=== PATIENT | female | born 1955 | race Caucasian/White ===

== ENCOUNTER 2019-01-06 12:35 | Observation (INO) ==
--- OUTSIDE RECORDS SUMMARY | 2019-01-06 12:38 | External Medical Summary | Continuity of Care Document ---
:1955 Author Name Greg Hopper, Provider Address Unavailable Unavailable , Care Team Providers Name Role Phone NonMNPG MBilly, Provider Unavailable [email or web address], [email or web address] Unavailable Unavailable Problems Active medical history not documented Allergies and Adverse Reactions aspirin (Allergy) Capsaicin CREA (Allergy) Dimaphen DM Cold/Cough ELIX (Allergy) diphenhydrAMINE (Allergy) Entex ER (Allergy) guaiFENesin TABS (Allergy) Ornade Spansules (Allergy) Penicillins (Allergy) Piperine POWD (Allergy) Shellfish-derived Products (Allergy) simvastatin (Allergy) Mold (Allergy) Medications Vitamin B Complex Oral Tablet; Take once or twice per week Start: 16-Sep-2018 Refills: 0 Co Q 10 100 MG Oral Capsule; TAKE 2 CAPSULES ONCE DAILY. Start: 16-Sep-2018 Refills: 0 Centrum Silver Oral Tablet; TAKE 1 TABLET DAILY. Start: 16-Sep-2018 Refills: 0 Vitamin D3 1000 UNIT Oral Capsule; TAKE 1 CAPSULE Daily Start: 16-Sep-2018 Refills: 0 Procedures Procedures not documented Immunizations Immunizations not documented Social History - Smoking Status Former smoker Plan of Treatment Planned Observations Planned Goals not documented Results No Known Results Results not documented
[2019-01-06] MEDS ORDERED: ASPIRIN CHEW 324 MG PO STA (13:05)
[2019-01-06 13:17] LABS: Basophils # (auto) 0.01 K/uL (0-0.2); Basophils % (auto) 0.1 %; Eosinophils % (auto) 2.2 %; Hematocrit (blood only) 40.1 % (37-47); Hemoglobin 12.9 g/dL (12.0-16.0); Immature Granulocytes # (auto) 0.03 K/uL (0.00-0.02); Immature Granulocytes % (auto) 0.3 %; Lymphocytes # (auto) 3.13 K/uL (1.2-3.4); Lymphocytes % (auto) 33.8 %; Mean Corpuscular Hgb Conc 32.2 g/dL (32-36); Mean Corpuscular Volume 86.1 fL (80-100); Mean Platelet Volume 10.6 fL (7.4-10.4); Monocytes # (auto) 0.81 K/uL (0.11-0.59); Monocytes % (auto) 8.7 %; Neutrophils # (auto) 5.09 K/uL (1.4-6.5); Neutrophils % (auto) 54.9 %; Platelet Count 305 K/uL (130-400); RDW Standard Deviation 43.7 fL (36.4-46.3); Red Blood Count 4.66 M/uL (4.2-5.4); White Blood Count 9.27 K/uL (4.8-10.8)
[2019-01-06 13:26] LABS: Alanine Aminotransferase 19 U/L (12-78); Albumin Level 3.8 gm/dl (3.4-5.0); Aspartate Aminotransferase 18 U/L (15-37); BUN Creatinine Ratio 12.9 (10-20); Blood Urea Nitrogen 11 mg/dl (7-18); Carbon Dioxide 25 mmol/L (21-32); Chloride 109 mmol/L (98-107); Creatinine Clr Calc Pharmacy 61.2 ml/min; Est GFR (African American) 84.5; Est GFR (Non-African American) 72.9; Glucose 94 mg/dl (70-99); Magnesium 2.3 mg/dl (1.8-2.4); Sodium 140 mmol/L (136-145)
[2019-01-06 13:29] LABS: Albumin Globulin Ratio 1.2 (0.9-2); Alkaline Phosphatase 74 U/L (45-117); Bilirubin,Total 0.3 mg/dl (0.2-1); Globulin 3.2 gm/dl (2.5-4.0); Troponin I < 0.015 ng/ml (0-0.045)
--- NOTE | 2019-01-06 13:49 | XRay Report ---
XR chest 1V portable CLINICAL HISTORY: Chest Pain COMPARISON STUDY: No previous studies for comparison. FINDINGS: Lung volumes are normal. Lungs are clear. There is no pneumothorax or pleural effusion. Car diac size is normal. Mediastinal contours are normal. There is no evidence for pulmonary edema. Opaci ty along left heart border favors epicardial fat pad. IMPRESSION: No acute cardiopulmonary findings. Electronically signed by: Daniel Judge M.D. 01/06/2019 1:47 PM
--- NOTE | 2019-01-06 17:14 | History & Physical Report ---
Date of Service January 06, 2019 Assessment & Plan (1) Atypical chest pain: -Admit to telemetry -Patient presenting from home with reports of midsternal tight/squeezing chest pain that came on while she was picking some vegetables in her garden -Risk factors: + Family history, former smoker -Had relief after 1 spray of nitroglycerin for EMS -Now reporting an occasional burning sensation -Troponins negative x2, EKG without acute ST changes -Continue to cycle cardiac enzymes, check resting echo -Aspirin 81 mg daily -? GI in nature; will start PPI twice daily -BP elevated, likely situational; will continue to monitor -If troponins remain negative and echo unremarkable, consider discharge home with outpatient stress test (2) DVT prophylaxis: -SQ Lovenox History of Present Illness Chief Complaint: Chest pain Primary Care Provider: Samantha Brice, DO 63-year-old female who presents the ED with chest pain. Patient reports she was out in her garden, picking some vegetables, when she had a sudden onset of midsternal chest pain radiating into her back. Patient describes the pain as severe, squeezing/tightening. She had associated shortness of breath and felt unsteady on her feet. No nausea, lightheadedness, dizziness, diaphoresis, syncopal event. She reports she took 6 baby aspirin and that her took her to her doctor's office. When she arrived there, EMS was called. EMS gave the patient 1 spray of nitroglycerin and by the time she arrived to the ED, she reports she has had resolution of her pain. She reports an occasional burning sensation in her mid chest. Patient reports her otherwise been feeling well recently. No other recent illness, fevers, chills. She denies abdominal pain, vomiting, diarrhea. No urinary symptoms. In the ED, troponins are negative x2 and EKG does not show any acute ST changes. She has remained hemodynamically stable. She was given a full dose aspirin. Allergies Allergy/AdvReac Type Severity Reaction Status Date / Time capsaicin Allergy Severe throat Unverified 01/06/19 14:14 swelling penicillin V Allergy Intermediate Rash Unverified 01/06/19 14:14 shellfish derived Allergy Intermediate Nausea/ Unverified 01/06/19 14:14 vomiting mold Allergy Mild Sneezing Unverified 01/06/19 14:14 aspirin AdvReac Severe Tachycardia Unverified 01/06/19 14:14 simvastatin AdvReac Severe muscle Unverified 01/06/19 14:14 ache/ stiffness brompheniramine AdvReac Unknown tachypnea Unverified 01/06/19 14:14 [From Dimetapp (brompheniramine-PPA)] chlorpheniramine AdvReac Unknown tachypnea Unverified 01/06/19 14:14 [From Ornade] diphenhydramine AdvReac Unknown tachypnea Unverified 01/06/19 14:14 guaifenesin AdvReac Unknown tachypnea Unverified 01/06/19 14:14 phenylpropanolamine AdvReac Unknown tachypnea Unverified 01/06/19 14:14 [From Dimetapp (brompheniramine-PPA)] pseudoephedrine AdvReac Unknown tachypnea Unverified 01/06/19 14:14 [From Entex T] Home Medications Home Medications Medication Instructions Recorded Confirmed Type No Known Home Medications 01/06/19 01/06/19 History Past Med/Surg History Medical History GERD (gastroesophageal reflux disease) (Chronic) Surgical History S/P YESSENIA (total abdominal hysterectomy) (Chronic) History of appendectomy (Chronic) History of exploratory laparotomy (Chronic) Family History Sister Heart disease Stents at age 63 Grandmother (Maternal) Heart disease Social History Preferred Language: Albanian Communication Ability: Effective Data Center Architect Required: No Beliefs That Will Affect Care: None Current Living Situation: Spouse Other Information That Helps Us Care for You: No Feels Safe at Home: Yes Safety Concerns: Feels Safe At This Time Smoking Status: Former smoker Hx Alcohol Use: No Hx Substance Use: No Review of Systems Review of Systems: ROS per HPI, all other systems reviewed and negative Physical Exam Constitutional: WD/WN, vitals as above Eyes: PERRL, conjunctivae normal, anicteric sclerae ENMT: external ear and nose normal, oropharynx normal Respiratory: normal respiratory effort, lungs clear to auscultation Cardiovascular: Rate/Rhythm: regular rate and regular rhythm Vessels: normal peripheral pulses Extremities: no edema Gastrointestinal (Abdomen): normal bowel sounds, soft, nontender, no hepatosplenomegaly Musculoskeletal: no cyanosis or clubbing, extremities motor strength 5/5 Head/Neck/Chest: no chest tenderness Skin: no rashes, warm and dry Neurologic: PERRL, EOMI, accommodation nl, no face palsy, no dysarthria Psychiatric: A+Ox3, euthymic affect Results & Data Vital Signs (Past 12 Hours) Vital Signs Temp Pulse Pulse Resp BP BP Pulse Ox 01/06/19 15:55 67 22 156/87 H 97 01/06/19 13:36 80 17 145/93 H 97 01/06/19 12:46 37.0 C 78 17 162/91 H 97 Laboratory Results Short CBC 01/06/19 Range/Units 12:55 WBC 9.27 (4.8-10.8) K/uL Hgb 12.9 (12.0-16.0) g/dL Hct 40.1 (37-47) % Plt Count 305 (130-400) K/uL BMP 01/06/19 12:55 Sodium 140 Potassium 4.0 Chloride 109 H Carbon Dioxide 25 BUN 11 Creatinine 0.84 Glucose 94 Calcium 9.0 Cardiac Enzymes 01/06/19 01/06/19 Range/Units 12:55 14:00 Troponin I < 0.015 < 0.015 (0-0.045) ng/ml Liver Function 01/06/19 Range/Units 12:55 Total Bilirubin 0.3 (0.2-1) mg/dl AST 18 (15-37) U/L ALT 19 (12-78) U/L Alkaline Phosphatase 74 (45-117) U/L Albumin 3.8 (3.4-5.0) gm/dl Diagnostic Findings CXR IMPRESSION: No acute cardiopulmonary findings. Code Status & VTE Plan VTE Prophylaxis Plan VTE Prophylaxis will be ordered: Yes Supervising Physician Co-Signing Physician Notes Attending Addendum: care coordinated with ROOSEVELT Napier please refer to her notes for full details, I agree with her notes patient seen and examined, records reviewed by myself as well on exam, patient seen resting in bed, sitting up having dinner chest pain free denies SOB, abdominal pain, nausea in good spirits no other symptoms VS noted and reviewed oriented x 3 , not in distress, speaks in sentences with no effort nor accessory muscle use normal rate, regular rhythm, no murmurs clear breath sounds bilaterally non distended, soft, nontender no bipedal edema, erythema, warmth no neuro deficits trop <0.015 EKG no acute ischemia ASSESSMENT AND PLAN CHEST PAIN R/O ACS trend troponin echo ASA started check d dimer HTN no history in the past monitor other diagnoses and plan of care as per ROOSEVELT Ogden MD
[2019-01-06] MEDS ORDERED: NITROGLYCERIN SL 0.4 MG/TAB TAB SL PRN (17:31)
[2019-01-06] MEDS ORDERED: ACETAMINOPHEN 325 MG TAB PO PRN (17:31)
[2019-01-06 18:27] LABS: INR 1.1 (0.9-1.1); Prothrombin Time 10.8 Seconds (9.0-12.0)
[2019-01-06] MEDS ORDERED: ENOXAPARIN INJ 40 MG/0.4 ML SYR SQ SCH (19:00)
[2019-01-06 19:17] LABS: D Dimer 220 ug/L FEU (0-500)
--- NOTE | 2019-01-06 20:03 | Emergency Department Note ---
Entered by Seda James acting as a scribe for Biju Serna MD History of Present Illness General Chief complaint: Chest Pain Time Seen by Provider: 01/06/19 12:36 Source: patient History of Present Illness Provider complaint: Chest pain Onset (ago): hour(s) 2 Location: chest Pain Consistency: + constant Quality: + burning and + other (fist grabbing ) Associated symptoms: + chest pain, + shortness of breath and + other (Positive: leg swelling, trouble keeping balance. 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 The patient reports her pain lasted for 30 minutes. She describes her pain as fist grabbing pain in the front and the back. The patient notes she was given nitroglycerin on her way to the ED and her pain was improved. 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 The patient reports she has trouble keeping her balance. She notes she has family history of heart problems. The patient states she has swelling in her legs that started a month ago. She notes she gets shortness of breath when she has chest pain. The patient states she has not had any recent procedures in the last month. She states she does not have history of blood clots in the legs or lungs. The patient denies smoking, nausea, fever, chills, cough, or abdominal pain. Home Medications Home Medications Medication Instructions Recorded Confirmed Type No Known Home Medications 01/06/19 01/06/19 History Allergies Allergy/AdvReac Type Severity Reaction Status Date / Time capsaicin Allergy Severe throat Unverified 01/06/19 14:14 swelling penicillin V Allergy Intermediate Rash Unverified 01/06/19 14:14 shellfish derived Allergy Intermediate Nausea/ Unverified 01/06/19 14:14 vomiting mold Allergy Mild Sneezing Unverified 01/06/19 14:14 aspirin AdvReac Severe Tachycardia Unverified 01/06/19 14:14 simvastatin AdvReac Severe muscle Unverified 01/06/19 14:14 ache/ stiffness brompheniramine AdvReac Unknown tachypnea Unverified 01/06/19 14:14 [From Dimetapp (brompheniramine-PPA)] chlorpheniramine AdvReac Unknown tachypnea Unverified 01/06/19 14:14 [From Ornade] diphenhydramine AdvReac Unknown tachypnea Unverified 01/06/19 14:14 guaifenesin AdvReac Unknown tachypnea Unverified 01/06/19 14:14 phenylpropanolamine AdvReac Unknown tachypnea Unverified 01/06/19 14:14 [From Dimetapp (brompheniramine-PPA)] pseudoephedrine AdvReac Unknown tachypnea Unverified 01/06/19 14:14 [From Entex T] Past Med/Surg History Medical History GERD (gastroesophageal reflux disease) (Chronic) Surgical History S/P YESSENIA (total abdominal hysterectomy) (Chronic) History of appendectomy (Chronic) History of exploratory laparotomy (Chronic) Family History Sister Heart disease Stents at age 63 Grandmother (Maternal) Heart disease Social History Preferred Language: Setswana Communication Ability: Effective Substation Designer Required: No Beliefs That Will Affect Care: None Current Living Situation: Spouse Other Information That Helps Us Care for You: No Feels Safe at Home: Yes Safety Concerns: Feels Safe At This Time Smoking Status: Former smoker Hx Alcohol Use: No Hx Substance Use: No Review of Systems See HPI for pertinent positives & negatives. and A total of 10 systems reviewed and were otherwise negative Physical Exam Vital Signs Vital Signs - 24 hr 01/06/19 12:46 01/06/19 13:36 Temperature 37.0 C Temperature Source Oral Sepsis Recent Fever Within 48 Hours No Sepsis Action Taken by Nursing No Action Required Pulse Rate 78 Pulse Rate [Finger] 80 Respiratory Rate 17 17 Blood Pressure 162/91 H Blood Pressure [Left Arm] 145/93 H Blood Pressure Mean 114 Blood Pressure Mean [Left Arm] 110 Pulse Oximetry 97 97 Oxygen Delivery Method Room Air Room Air GENERAL: Well appearing, well nourished, NAD, non-toxic. Wearing glasses. EYE EXAM: Normal conjunctiva. PERRL, no anisocoria and EOM's grossly intact w/o pain. OROPHARYNX: Moist mucous membranes. Grossly normal dentition. NECK: Supple, no nuchal rigidity, no adenopathy, non-tender. No signs of meningismus. LUNGS: Clear to auscultation. Normal chest wall mechanics. HEART: NSR, no MRG. ABDOMEN: Abdomen soft, non-tender, normo-active bowel sounds, no masses, no rebound or guarding. BACK: No CVA TTP. SKIN: No rashes and no bruising. UPPER EXTREMITIES: Upper extremities are grossly normal. LOWER EXTREMITIES: No pitting edema. No calf pain. Negative malcom sign. NEURO EXAM: A&O x3, cranial nerves II-XII grossly intact, normal speech, moves all 4 extremities on command w/o issue. Course 1245: The patient was evaluated in room C3. A complete history and physical exam was performed. 1351: I checked on the patient. The patient still has chest pain and wants a stress test over admission. 1457: I reviewed the patient's case with Gabriel Fuller. The patient will go to Dr. Ogden, Internal medicine. 1505: Upon reevaluation, the patient is resting comfortably. I discussed laboratory and radiographic results with her. The patient verbalized agreement of the treatment plan. The patient will be evaluated for further management and care. 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 Differential diagnosis: Etiologies such as shingles, musculoskeletal pain, pericarditis, myocarditis, cardiac ischemia, pericardial tamponade, pneumonia, pneumothorax, pleural effusion, hemothorax, pleurisy, aortic pathology, pulmonary embolism, intra- abdominal process, as well as others were considered. Medical Records Attestation: I reviewed the patient's medical records. Home Medications Current Medication List: was personally reviewed by me Laboratory Data Attestation: I reviewed the patient's lab results. Result diagrams: 01/06/19 12:55 01/06/19 12:55 Lab Results 01/06/19 01/06/19 01/06/19 Range/Units 12:55 12:55 12:55 WBC 9.27 (4.8-10.8) K/uL RBC 4.66 (4.2-5.4) M/uL Hgb 12.9 (12.0-16.0) g/dL Hct 40.1 (37-47) % MCV 86.1 (80-100) fL MCH 27.7 (25-34) pg MCHC 32.2 (32-36) g/dL RDW Std Deviation 43.7 (36.4-46.3) fL RDW Coeff of Cherelle 14.0 (11.5-14.5) % Plt Count 305 (130-400) K/uL MPV 10.6 H (7.4-10.4) fL Immature Gran % (Auto) 0.3 % Neut % (Auto) 54.9 % Lymph % (Auto) 33.8 % [place] % (Auto) 8.7 % Eos % (Auto) 2.2 % Baso % (Auto) 0.1 % Immature Gran # (Auto) 0.03 H (0.00-0.02) K/uL Neut # (Auto) 5.09 (1.4-6.5) K/uL Lymph # (Auto) 3.13 (1.2-3.4) K/uL [place] # (Auto) 0.81 H (0.11-0.59) K/uL Eos # (Auto) 0.20 (0-0.5) K/uL Baso # (Auto) 0.01 (0-0.2) K/uL PT 10.8 (9.0-12.0) Seconds INR 1.1 (0.9-1.1) Sodium 140 (136-145) mmol/L Potassium 4.0 (3.5-5.1) mmol/L Chloride 109 H (98-107) mmol/L Carbon Dioxide 25 (21-32) mmol/L Anion Gap 6.0 (3-11) BUN 11 (7-18) mg/dl Creatinine 0.84 (0.6-1.2) mg/dl Est Cr Clr Drug Dosing 61.2 ml/min Est GFR ( Amer) 84.5 Est GFR (Non-Af Amer) 72.9 BUN/Creatinine Ratio 12.9 (10-20) Glucose 94 (70-99) mg/dl Calcium 9.0 (8.5-10.1) mg/dl Magnesium 2.3 (1.8-2.4) mg/dl Total Bilirubin 0.3 (0.2-1) mg/dl AST 18 (15-37) U/L ALT 19 (12-78) U/L Alkaline Phosphatase 74 (45-117) U/L Troponin I < 0.015 (0-0.045) ng/ml Total Protein 7.0 (6.4-8.2) gm/dl Albumin 3.8 (3.4-5.0) gm/dl Globulin 3.2 (2.5-4.0) gm/dl Albumin/Globulin Ratio 1.2 (0.9-2) Lipase 127 (73-393) U/L Specimen Hemolysis 01/06/19 Range/Units 14:00 WBC (4.8-10.8) K/uL RBC (4.2-5.4) M/uL Hgb (12.0-16.0) g/dL Hct (37-47) % MCV (80-100) fL MCH (25-34) pg MCHC (32-36) g/dL RDW Std Deviation (36.4-46.3) fL RDW Coeff of Cherelle (11.5-14.5) % Plt Count (130-400) K/uL MPV (7.4-10.4) fL Immature Gran % (Auto) % Neut % (Auto) % Lymph % (Auto) % [place] % (Auto) % Eos % (Auto) % Baso % (Auto) % Immature Gran # (Auto) (0.00-0.02) K/uL Neut # (Auto) (1.4-6.5) K/uL Lymph # (Auto) (1.2-3.4) K/uL [place] # (Auto) (0.11-0.59) K/uL Eos # (Auto) (0-0.5) K/uL Baso # (Auto) (0-0.2) K/uL PT (9.0-12.0) Seconds INR (0.9-1.1) Sodium (136-145) mmol/L Potassium (3.5-5.1) mmol/L Chloride (98-107) mmol/L Carbon Dioxide (21-32) mmol/L Anion Gap (3-11) BUN (7-18) mg/dl Creatinine (0.6-1.2) mg/dl Est Cr Clr Drug Dosing ml/min Est GFR ( Amer) Est GFR (Non-Af Amer) BUN/Creatinine Ratio (10-20) Glucose (70-99) mg/dl Calcium (8.5-10.1) mg/dl Magnesium (1.8-2.4) mg/dl Total Bilirubin (0.2-1) mg/dl AST (15-37) U/L ALT (12-78) U/L Alkaline Phosphatase (45-117) U/L Troponin I < 0.015 (0-0.045) ng/ml Total Protein (6.4-8.2) gm/dl Albumin (3.4-5.0) gm/dl Globulin (2.5-4.0) gm/dl Albumin/Globulin Ratio (0.9-2) Lipase (73-393) U/L Specimen Hemolysis Imaging Data Radiologist's Impression: Radiology results as stated below per my review and the radiologist's interpretation: XR chest 1V portable CLINICAL HISTORY: Chest Pain COMPARISON STUDY: No previous studies for comparison. FINDINGS: Lung volumes are normal. Lungs are clear. There is no pneumothorax or pleural effusion. Cardiac size is normal. Mediastinal contours are normal. There is no evidence for pulmonary edema. Opacity along left heart border favors epicardial fat pad. IMPRESSION: No acute cardiopulmonary findings. Electronically signed by: Daniel Judge M.D. 01/06/2019 1:47 PM ECG Data Attestation: I personally reviewed and interpreted this ECG as follows: Indication: chest pain Rate (beats per minute): 71 Rhythm: normal sinus Findings: + other (Normal intervals and axis. ) and + T-wave inversion (Lead 3) Comparison ECG Date: from (Prehospital ECG) Change: no significant change Blood Pressure Blood Pressure Findings: Elevated blood pressure Blood Pressure Disposition: further management by hospitalist MDM Narrative The patient is a 63 white female w/ PMHx of PVC who presents to the ED w/ CC of burning central chest pain beginning 2 hours ago. Patient was seen and evaluated the bedside. The patient is a recent transplant moved to the area and was subsequently referred here from the primary care's office with concern for chest pains. The patient did complain of some squeezing and pressure-like central chest pain. The patient did have some diaphoresis but without nausea vomiting. The patient also does relate that she has significant cardiac history and her brother and mother before the age of 65. The patient did have blood work completed along with an EKG troponin. Patient's EKG does show T wave inversion 3. No prior to compare at this time which she has not been here before. Patient never did experience any chest pains while in the department. The patient does have a T wave inversion inferiorly but no prior to compare to if she is not from the area. The patient has normal blood work. A repeat troponin was obtained after discussion with the patient she would prefer to try to get a stress test now. Did call the black topper who unfortunately was unable to perform a stress test at this time given his already busy schedule. I did rediscuss with the patient to see if she was amenable for inpatient treatment. Patient was agreeable. Patient was subsequently admitted to the medicine service for further evaluation treatment likely stress test tomorrow. Impression & Plan Atypical chest pain Discharge Plan Visit Data *Final* Discharge Date/Time: 01/06/19 16:56 Chief Complaint: Chest Pain ED Provider: Biju Serna Discharge Problem: Atypical chest pain Patient Disposition: Admitted As Inpatient Discharge Instructions Interventions: ED Discharge Assessment Last Done: 01/06/19 16:56 The scribe's documentation has been prepared under my direction and personally reviewed by me in its entirety. I confirm that the note above accurately refle cts all work, treatment, procedures, and medical decision making performed by me.
[2019-01-06] MEDS: PANTOprazole 40 MG TAB PO SCH (20:05)
[2019-01-07 02:11] LABS: Hematocrit (blood only) 39.3 % (37-47); Hemoglobin 12.5 g/dL (12.0-16.0); Mean Corpuscular Hgb Conc 31.8 g/dL (32-36); Mean Corpuscular Volume 86.2 fL (80-100); Mean Platelet Volume 9.9 fL (7.4-10.4); Platelet Count 276 K/uL (130-400); RDW Coefficient of Variation 13.9 % (11.5-14.5); RDW Standard Deviation 43.8 fL (36.4-46.3); Red Blood Count 4.56 M/uL (4.2-5.4); White Blood Count 8.04 K/uL (4.8-10.8)
[2019-01-07 02:29] LABS: Blood Urea Nitrogen 16 mg/dl (7-18); Calcium 8.6 mg/dl (8.5-10.1); Carbon Dioxide 26 mmol/L (21-32); Chloride 110 mmol/L (98-107); Creatinine Clr Calc Pharmacy 64.7 ml/min; Est GFR (African American) 92.5; Est GFR (Non-African American) 79.8; Glucose 98 mg/dl (70-99); Potassium 3.9 mmol/L (3.5-5.1); Sodium 142 mmol/L (136-145)
[2019-01-07 02:34] LABS: Chol HDL Ratio 7; Cholesterol 234 mg/dl (0-200); HDL Cholesterol 34 mg/dl; LDL Cholesterol Calculated 169 mg/dl; Triglycerides 157 mg/dl (0-150); Troponin I < 0.015 ng/ml (0-0.045); VLDL Cholesterol 31 mg/dl
[2019-01-07] MEDS ORDERED: ASPIRIN 81 MG ECTAB PO SCH (09:00)
[2019-01-07] MEDS: PANTOprazole 40 MG TAB PO SCH (10:00)
--- NOTE | 2019-01-08 21:10 | Hospitalist Progress Note ---
Date of Service delayed entry date of service 01/07/19 January 08, 2019 Assessment & Plan (1) Atypical chest pain: ACS ruled out -Patient presenting from home with reports of midsternal tight/squeezing chest pain that came on while she was picking some vegetables in her garden -Risk factors: + Family history, former smoker -Had relief after 1 spray of nitroglycerin for EMS -Now reporting an occasional burning sensation Troponins x 3 negative EKG no signs of acute ischemia Echo: EF 65-70% left ventricular wall motion is normal there is no pericardial effusion possible patent foramen ovale, per color doppler interrogation of the interatrial septum consider repeat limited echocardiogram with injection of agitated salilne contrast for further evaluation if clinically warranted ASA 81mg po daily Outpatient Stress Test Chest pain from GERD, Hiatal Hernia? Omeprazole 40mg daily monitor response Discharge to home ff up with PCP in 1 week Subjective seen resting in bed, comfortable in good spirits chest pain free, no recurrence of chest pain since admission no nausea/vomiting, dyspnea, dizziness, abdominal pain no other symptoms states she is ready and would like to be discharged Review of Systems Review of Systems: All systems reviewed & are unremarkable except as noted in HPI & below Physical Exam 2 Physical Exam: General- oriented x 3, not in distress, speaks in sentences with no effort or accessory muscle use Eyes- anicteric Neck- no JVD Lungs- clear breath sounds bilaterally Heart- normal rate, regular rhythm; no murmurs Abdomen- normal bowel sounds, nondistended, soft, nontender Extremities- no pretibial edema, no calf tenderness Neuro- alert, oriented x 3; no gross focal neurologic deficits Skin- warm & dry Results & Data Laboratory Results all noted and reviewed
--- NOTE | 2019-01-11 18:29 | Discharge Summary ---
Date of Service January 11, 2019 Admission HPI Per Admitting Provider 63-year-old female who presents the ED with chest pain. Patient reports she was out in her garden, picking some vegetables, when she had a sudden onset of midsternal chest pain radiating into her back. Patient describes the pain as severe, squeezing/tightening. She had associated shortness of breath and felt unsteady on her feet. No nausea, lightheadedness, dizziness, diaphoresis, syncopal event. She reports she took 6 baby aspirin and that her took her to her doctor's office. When she arrived there, EMS was called. EMS gave the patient 1 spray of nitroglycerin and by the time she arrived to the ED, she reports she has had resolution of her pain. She reports an occasional burning sensation in her mid chest. Patient reports her otherwise been feeling well recently. No other recent illness, fevers, chills. She denies abdominal pain, vomiting, diarrhea. No urinary symptoms. In the ED, troponins are negative x2 and EKG does not show any acute ST changes. She has remained hemodynamically stable. She was given a full dose aspirin. Admission Exam Per Admitting Provider Constitutional: WD/WN, vitals as above Eyes: PERRL, conjunctivae normal, anicteric sclerae ENMT: external ear and nose normal, oropharynx normal Respiratory: normal respiratory effort, lungs clear to auscultation Cardiovascular: Rate/Rhythm: regular rate and regular rhythm Vessels: normal peripheral pulses Extremities: no edema Gastrointestinal (Abdomen): normal bowel sounds, soft, nontender, no hepatosplenomegaly Musculoskeletal: no cyanosis or clubbing, extremities motor strength 5/5 Head/Neck/Chest: no chest tenderness Skin: no rashes, warm and dry Neurologic: PERRL, EOMI, accommodation nl, no face palsy, no dysarthria Psychiatric: A+Ox3, euthymic affect Principal Diagnosis ATYPICAL CHEST PAIN Discharge Exam General- oriented x 3, not in distress, speaks in sentences with no effort or accessory muscle use Eyes- anicteric Neck- no JVD Lungs- clear breath sounds bilaterally Heart- normal rate, regular rhythm; no murmurs Abdomen- normal bowel sounds, nondistended, soft, nontender Extremities- no pretibial edema, no calf tenderness Neuro- alert, oriented x 3; no gross focal neurologic deficits Skin- warm & dry Discharge Data Allergies Allergy/AdvReac Type Severity Reaction Status Date / Time capsaicin Allergy Severe throat Unverified 01/06/19 14:14 swelling penicillin V Allergy Intermediate Rash Unverified 01/06/19 14:14 shellfish derived Allergy Intermediate Nausea/ Unverified 01/06/19 14:14 vomiting mold Allergy Mild Sneezing Unverified 01/06/19 14:14 aspirin AdvReac Severe Tachycardia Unverified 01/06/19 14:14 simvastatin AdvReac Severe muscle Unverified 01/06/19 14:14 ache/ stiffness brompheniramine AdvReac Unknown tachypnea Unverified 01/06/19 14:14 [From Dimetapp (brompheniramine-PPA)] chlorpheniramine AdvReac Unknown tachypnea Unverified 01/06/19 14:14 [From Ornade] diphenhydramine AdvReac Unknown tachypnea Unverified 01/06/19 14:14 guaifenesin AdvReac Unknown tachypnea Unverified 01/06/19 14:14 phenylpropanolamine AdvReac Unknown tachypnea Unverified 01/06/19 14:14 [From Dimetapp (brompheniramine-PPA)] pseudoephedrine AdvReac Unknown tachypnea Unverified 01/06/19 14:14 [From Entex T] Consultations 01/06/19 14:58 ED Decision to Admit Stat Procedures Performed ECHO: EF 65-70% The Left Ventricular Wall Motion is normal. There is no pericardial effusion. normal LV relaxation possible patent foramen ovale, per color doppler interrogation of the interatrial septum consider repeat limited echocardiogram with injection of agitated salilne contrast for further evaluation if clinically warranted XR chest 1V portable CLINICAL HISTORY: Chest Pain COMPARISON STUDY: No previous studies for comparison. FINDINGS: Lung volumes are normal. Lungs are clear. There is no pneumothorax or pleural effusion. Cardiac size is normal. Mediastinal contours are normal. There is no evidence for pulmonary edema. Opacity along left heart border favors epicardial fat pad. IMPRESSION: No acute cardiopulmonary findings. Hospital Course (1) Atypical chest pain: Acute Coronary Syndrome ruled out -Patient presenting from home with reports of midsternal tight/squeezing chest pain that came on while she was picking some vegetables in her garden -Risk factors: + Family history, former smoker -Had relief after 1 spray of nitroglycerin for EMS on admission, reporting an occasional burning sensation Troponins x 3 negative EKG no signs of acute ischemia Echo: EF 65-70% left ventricular wall motion is normal there is no pericardial effusion possible patent foramen ovale, per color doppler interrogation of the interatrial septum consider repeat limited echocardiogram with injection of agitated salilne contrast for further evaluation if clinically warranted can walk 2 blocks, climb 13 steps without chest pain, unusual dyspnea recommend ASA 81mg po daily Outpatient Stress Test Chest pain from GERD, Hiatal Hernia? Omeprazole 40mg daily monitor response Discharge to home ff up with PCP in 1 week case and plan of care discussed with patient in detail and at length all questions answered she is understanding, agreeable and comfortable Total Time Total Time Spent Total Time Spent (In Minutes): 50 mins Discharge Plan Discharge Items Patient Disposition: Home - Self-Care Reason For Visit: CHEST PAIN Discharge Diagnosis: CHEST PAIN Discharge Goals: Diagnostic testing and Therapeutic intervention Activity: As commented below Activity Comment: NO HEAVY EXERTION UNTIL RE-EVALUATED BY PRIMARY CARE PHYSICIAN Lifting: Wait until after follow-up appointment Exercise/Sports: Wait until after follow-up appointment Driving/Machine Use Comment: NO DRIVING UNTIL RE-EVALUATED BY PRIMARY CARE PHYSICIAN Non-emergency contact: Primary Care Provider Call non-emergency contact if: you have any medication questions Follow-up/Referrals: Samantha Matamoros, [Primary Care Provider] - Diet: Heart Healthy Addtl Provider Instructions: PLEASE CALL PRIMARY CARE PHYSICIAN OR RETURN TO THE ER IF WITH RECURRENCE OF SYMPTOMS. ALWAYS TAKE ASPIRIN WITH A FULL STOMACH. ALWAYS TAKE OMEPRAZOLE AT LEAST 30 MINUTES BEFORE THE FIRST MEAL OF THE DAY. FOLLOW UP WITH DR. SAMANTHA MATAMOROS THIS COMING WEEK. STRESS TEST TO BE DONE AN OUTPATIENT. THE SCHEDULING OFFICE WILL BE CALLING YOU FOR BOTH APPOINTMENTS SOON. Prescriptions: New aspirin [Ecotrin Low Strength] 81 mg Tablet,Delayed Release (Dr/Ec) 81 mg PO QAM 30 Days Qty: 30 RF: 1 omeprazole 20 mg tablet,delayed release (DR/EC) 40 mg PO DAILY Qty: 30 RF: 0 No Action No Known Home Medications RF: 0 Stand-Alone Forms: Call Back Authorization, [facility] Discharge Orders: Discharge Order (Routine); Ordered 01/07/19 Ordered By: Oziel Ogden Admission Data Admit Date/Time: 01/06/19 15:17 Attending Provider: Oziel Ogden Admit Provider: Oziel Ogden Primary Care Provider: Samantha Matamoros Other Providers: Oziel Ogden Service: Telemetry Other Interventions: Discharge Summary Assessment (RN) Last Done: 01/07/19 14:28 DC Date/Time DO NOT enter until pt leaves facility: 01/07/19 15:22
== END 2019-01-07 15:22 | disposition home or self-care (01) ==
LOC: ED 12:35 → 2S 12:35